=== PATIENT | female | born 1945 | race Asian ===

== ENCOUNTER 2016-09-02 16:55 | Emergency (ER) | payer OTHER ==
--- NOTE | 2016-09-02 18:14 | PDOC ---
History of Present Illness - History of Present Illness Initial Comments: 09/02/16 18:33 The patient is a 70 year old female with a past medical hx of HTN who presents to the ED complaining of intermittent dizziness for 1.5 weeks. The patient states she is visiting from [place] and initially experienced the dizziness on the plane to [place]. She reports she was unable to walk on the plane secondary to the dizziness. She describes the dizziness as a sensation of the room spinning. The patient states she stopped taking Lisinopril one year ago. Her son reports he has been taking her blood pressure and has noticed an increase from her baseline. The patient is asymptomatic while in the ED and denies any recent illnesses or sick contacts. The patient reports headache, lightheadedness, nausea, cough The patient denies chest pain, SOB The patient denies dysuria, frequency The patient denies vomiting, diarrhea Social: No tobacco use reported Allergies: NKDA Surgical: None reported PCP: N/A <Azalea Carpio - Last Filed: 09/02/16 18:41> - General History Source: Patient, Family Exam Limitations: No Limitations <Tonio Mccartney - Last Filed: 09/03/16 21:53> - General Chief Complaint: Lightheaded Stated Complaint: HEADACHE & DIZZY 2-3 DAYS Time Seen by Provider: 09/02/16 18:01 Past History <Azalea Carpio - Last Filed: 09/02/16 18:41> - Past Medical History HTN: Yes (NO MEDS) - Psycho/Social/Smoking Cessation Hx Anxiety: No Suicidal Ideation: No Smoking History: Never smoked Substance Use Type: None <Tonio Mccartney - Last Filed: 09/03/16 21:53> - Past Medical History Allergies/Adverse Reactions: Allergies Allergy/AdvReac Type Severity Reaction Status Date / Time No Known Allergies Allergy Verified 09/02/16 17:57 Home Medications: Ambulatory Orders Meclizine HCl [Antivert -] 25 mg PO TID #21 tablet 09/02/16 Review of Systems - Review of Systems Able to Perform ROS?: Yes Comments:: 09/02/16 18:37 GENERAL/CONSTITUTIONAL: No fever or chills. No weakness. HEAD, EYES, EARS, NOSE AND THROAT: No change in vision. No ear pain or discharge. No sore throat. CARDIOVASCULAR: No chest pain or shortness of breath. RESPIRATORY: +Cough. No wheezing, or hemoptysis. GASTROINTESTINAL: + Nausea. No vomiting, diarrhea or constipation. GENITOURINARY: No dysuria, frequency, or change in urination. MUSCULOSKELETAL: No joint or muscle swelling or pain. No neck or back pain. SKIN: No rash NEUROLOGIC: + Headache, dizziness, lightheadedness. No loss of consciousness, or change in strength/sensation. ENDOCRINE: No increased thirst. No abnormal weight change. HEMATOLOGIC/LYMPHATIC: No anemia, easy bleeding, or history of blood clots. ALLERGIC/IMMUNOLOGIC: No hives or skin allergy. <Azalea Carpio - Last Filed: 09/02/16 18:41> *Physical Exam - Vital Signs Last Vital Signs Temp Pulse Resp BP Pulse Ox 98.1 F 74 15 154/80 98 09/02/16 17:56 09/02/16 17:56 09/02/16 17:56 09/02/16 17:56 09/02/16 17:56 - Physical Exam Comments: 09/02/16 18:40 GENERAL: Awake, alert, and fully oriented, in no acute distress HEAD: No signs of trauma EYES: +No nystagmus. PERRLA, EOMI, sclera anicteric, conjunctiva clear ENT: Auricles normal inspection, hearing grossly normal, nares patent, oropharynx clear without exudates. Moist mucosa NECK: Normal ROM, supple, no lymphadenopathy, JVD, or masses LUNGS: Breath sounds equal, clear to auscultation bilaterally. No wheezes, and no crackles HEART: Regular rate and rhythm, normal S1 and S2, no murmurs, rubs or gallops ABDOMEN: Soft, nontender, normoactive bowel sounds. No guarding, no rebound. No masses EXTREMITIES: Normal range of motion, no edema. No clubbing or cyanosis. No cords, erythema, or tenderness NEUROLOGICAL: Cranial nerves II through XII intact. 5/5 strength in upper and lower extremities. Sensation intact throughout. Finger to nose intact. Rapid alternating hands intact. Normal speech, normal gait SKIN: Warm, Dry, normal turgor, no rashes or lesions noted. <Azalea Carpio - Last Filed: 09/02/16 18:41> Heart Score/ECG Review #1 ECG reviewed & interpreted by me at: 18:20 01/02/17 18:22 NSR 68, no std/sabiha, normal axis, normal intervals, QTC 438 msec <Tonio Mccartney - Last Filed: 09/03/16 21:53> ED Treatment Course - LABORATORY CBC & Chemistry Diagram: 09/02/16 18:25 09/02/16 18:25 - ADDITIONAL ORDERS Additional order review: Laboratory Results 09/02/16 18:15 Urine Color Yellow Urine Appearance Clear Urine pH 5.5 Ur Specific [place] 1.025 Urine Protein Negative Urine Glucose (UA) Negative Urine Ketones Negative Urine Blood Trace H Urine Nitrite Negative Urine Bilirubin Negative Urine Urobilinogen 0.2 e.u/dl Ur Leukocyte Esterase Negative <Azalea Carpio - Last Filed: 09/02/16 18:41> - LABORATORY CBC & Chemistry Diagram: 09/02/16 18:25 09/02/16 18:25 - RADIOLOGY Radiology Studies Ordered: Category Date Time Status HEAD CT WITHOUT CONTRAST [CT] Stat CT Scan 09/02/16 18:03 Ordered <Tonio Mccartney - Last Filed: 09/03/16 21:53> Medical Decision Making - Medical Decision Making 09/02/16 18:08 A portion of this note was documented by scribe services under my direction. I have reviewed the details of the note, within reason, and agree with the documentation with the following case summary and management plan written by me. Patient treated in the ED. Nursing notes are reviewed and incorporated into the medical decision-making. Vital signs reviewed. Peripheral IV access obtained by the nurse, laboratory studies are drawn and sent, reviewed and interpreted by myself. 70-year-old female with past medical history of hypertension, him in from [place], currently visiting her son in [place], presents with 1-1/2 weeks of intermittent dizziness and lightheadedness. The patient had trauma from [place] and since arriving here, she reports intermittent episodes of dizziness and lightheadedness that would last for approximate hour resolve on its own. She describes as a room spinning sensation or occasionally lightheadedness. It is not orthostatic in nature. Denies any associated chest pain or shortness of breath. Has not taken any medications for the symptoms. Denies any recent illnesses, fevers, chills, cough, vomiting, diarrhea, dysuria. Denies ear pains. Because the patient has been having persistent symptoms for 1-1/2 weeks, the patient's son brought the patient to the ER. It may be possible that the patient is likely having peripheral vertigo. However , given the history of hypertension and age, we'll obtain a head CT, labs, EKG, urinalysis. If workup is unremarkable, we'll discharge patient with meclizine and have the patient follow-up with her primary care physician in [place]. The patient is currently asymptomatical at this time. 09/02/16 18:59 Case signed out to [facility] ED attending Dr. Galindo for further management and disposition. <Tonio Mccartney - Last Filed: 09/03/16 21:53> *DC/Admit/Observation/Transfer - Attestations Scribe Attestion: 09/02/16 18:37 Documentation prepared by Azalea Carpio, acting as medical management specialist for Tonio Mccartney MD. <Azalea Carpio - Last Filed: 09/02/16 18:41> <Tonio Mccartney - Last Filed: 09/03/16 21:53> Diagnosis at time of Disposition: Vertigo - Discharge Dispostion Disposition: HOME Condition at time of disposition: Good - Prescriptions Prescriptions: Meclizine HCl [Antivert -] 25 mg PO TID #21 tablet - Patient Instructions Printed Discharge Instructions: DI for Vertigo Additional Instructions: Mrs Robledo- Sorry that this has been bothering you so. It is VERTIGO. Your CT results do show some things that your regular doctor should know but they are not anything to worry about. Take the report to your doctor when you get back home. Antivert will help with these spells but, it may make you sleepy. Return to us if you have any problems. Best- Dr. Remberto Galindo
[2016-09-02 18:25] LABS: PH,URINE 5.5 (4.5-8); URINE APPEARANCE Clear; URINE BILIRUBIN Negative (NEGATIVE); URINE GLUCOSE (UA) Negative (NEGATIVE); URINE KETONE Negative (NEGATIVE); URINE LEUK ESTERASE Negative (NEGATIVE); URINE NITRITE Negative (NEGATIVE); URINE PROTEIN Negative (NEGATIVE); URINE UROBILINOGEN 0.2 E.U/dl (0.2-1.0)
[2016-09-02 18:29] LABS: URINE BLOOD TRACE (NEGATIVE); URINE COLOR YELLOW
[2016-09-02 18:33] VITALS: BP 154/80; PULSE 74; TEMP 98.1; BMI 21.6
[2016-09-02 18:35] LABS: URINE RBC 0-3 /hpf (0-3)
[2016-09-02 18:36] LABS: URINE BACTERIA 2+ /hpf (NEGATIVE); URINE WBC 0-3 (3-5); YEAST FEW
[2016-09-02 18:44] LABS: BASOPHIL 0.4 % (0-2.0); EOSINOPHIL 2.2 % (0-4.5); MCH 31.5 pg (25.7-33.7); MCHC 33.6 g/dl (32.0-36.0); MEAN CELL VOLUME 93.6 fl (80-96); MEAN PLT VOLUME 8.5 fl (7.5-11.1); NEUTROPHILS 67.5 % (42.8-82.8); PLATELET COUNT 186 K/MM3 (134-434); RDW 12.3 % (11.6-15.6); WHITE BLOOD COUNT 6.7 K/mm3 (4.0-10.0)
[2016-09-02 19:01] LABS: CPK(DFH) 51 IU/L (26-140)
[2016-09-02 19:02] LABS: ALBUMIN 4.1 g/dl (3.5-5.0); ALK PHOS 58 U/L (32-92); ANION GAP 5 (8-16); BILIRUBIN,TOTAL 0.4 mg/dl (0.2-1.0); CO2 26 mmol/L (22-28); CREATININE 0.8 mg/dl (0.6-1.3); GLUCOSE,RANDOM 159 mg/dl (74-106); SGOT/AST 31 U/L (10-42); SGPT/ALT 21 U/L (10-40); TOT PROT 7.2 g/dl (6.4-8.3)
--- NOTE | 2016-09-02 19:07 | PDOC ---
*Physical Exam - Vital Signs Last Vital Signs Temp Pulse Resp BP Pulse Ox 98.1 F 74 15 154/80 98 09/02/16 17:56 09/02/16 17:56 09/02/16 17:56 09/02/16 17:56 09/02/16 17:56 <Remberto Galindo - Last Filed: 09/02/16 21:13> - Vital Signs Last Vital Signs Temp Pulse Resp BP Pulse Ox 98.1 F 74 15 154/80 98 09/02/16 17:56 09/02/16 17:56 09/02/16 17:56 09/02/16 17:56 09/02/16 17:56 - Physical Exam Comments: 09/02/16 19:14 The patient is a 70 year old female with a past medical hx of HTN who presents to the ED complaining of intermittent dizziness for 1.5 weeks. Patient care transitioned from Dr. Mccartney to Dr. Galindo at 19:00. Pending CT Head, labs. <Azalea Carpio - Last Filed: 09/02/16 21:16> ED Treatment Course - LABORATORY CBC & Chemistry Diagram: 09/02/16 18:25 09/02/16 18:25 - ADDITIONAL ORDERS Additional order review: Laboratory Results 09/02/16 18:15 Urine Color Yellow Urine Appearance Clear Urine pH 5.5 Ur Specific [place] 1.025 Urine Protein Negative Urine Glucose (UA) Negative Urine Ketones Negative Urine Blood Trace H Urine Nitrite Negative Urine Bilirubin Negative Urine Urobilinogen 0.2 e.u/dl Ur Leukocyte Esterase Negative Urine RBC 0-3 Urine WBC 0-3 Ur Epithelial Cells 2+ Amorphous Urates Few Urine Bacteria 2+ Urine Yeast Few 09/02/16 18:25 RBC 4.16 MCV 93.6 MCHC 33.6 RDW 12.3 MPV 8.5 Neutrophils % 67.5 Lymphocytes % 25.2 Monocytes % 4.7 Eosinophils % 2.2 Basophils % 0.4 <Remberto Galindo - Last Filed: 09/02/16 21:13> - LABORATORY CBC & Chemistry Diagram: 09/02/16 18:25 09/02/16 18:25 - ADDITIONAL ORDERS Additional order review: Laboratory Results 09/02/16 18:15 Urine Color Yellow Urine Appearance Clear Urine pH 5.5 Ur Specific [place] 1.025 Urine Protein Negative Urine Glucose (UA) Negative Urine Ketones Negative Urine Blood Trace H Urine Nitrite Negative Urine Bilirubin Negative Urine Urobilinogen 0.2 e.u/dl Ur Leukocyte Esterase Negative Urine RBC 0-3 Urine WBC 0-3 Ur Epithelial Cells 2+ Amorphous Urates Few Urine Bacteria 2+ Urine Yeast Few 09/02/16 18:25 RBC 4.16 MCV 93.6 MCHC 33.6 RDW 12.3 MPV 8.5 Neutrophils % 67.5 Lymphocytes % 25.2 Monocytes % 4.7 Eosinophils % 2.2 Basophils % 0.4 - RADIOLOGY Radiograph Interpretation: 09/02/16 21:16 CT head without contrast Impression: There is mild/moderate diffuse cortical atrophy present. There is no evidence of acute infarction. There is no hemorrhage. There are nonspecific calcifications in the basal ganglia bilaterally. There is no skull fracture seen. The mastoid regions are non-pneumatized. There is partial opacification of the middle ear cavities bilaterally. THIS DOCUMENT HAS BEEN ELECTRONICALLY SIGNED Gerry Jj MD 09/02/2016 20:46 EST <Azalea Carpio - Last Filed: 09/02/16 21:16> *DC/Admit/Observation/Transfer - Discharge Dispostion Admit: No - Attestations Physician Attestion: 09/02/16 19:06 I, Dr. Remberto Galindo, attest that this document has been prepared under my direction and personally reviewed by me in its entirety. I further attest, that it accurately reflects all work, treatment, procedures and medical decision -making performed by me. <Remberto Galindo - Last Filed: 09/02/16 21:13> <Azalea Carpio - Last Filed: 09/02/16 21:16> Diagnosis at time of Disposition: Vertigo - Discharge Dispostion Disposition: HOME Condition at time of disposition: Good - Prescriptions Prescriptions: Meclizine HCl [Antivert -] 25 mg PO TID #21 tablet - Patient Instructions Printed Discharge Instructions: DI for Vertigo Additional Instructions: Mrs Robledo- Sorry that this has been bothering you so. It is VERTIGO. Your CT results do show some things that your regular doctor should know but they are not anything to worry about. Take the report to your doctor when you get back home. Antivert will help with these spells but, it may make you sleepy. Return to us if you have any problems. Amb[place]- Dr. Remberto Galindo
[2016-09-02 19:41] LABS: TROPONIN I (DFP) < 0.03 ng/ml (0.03-0.50)
== END 2016-09-02 21:29 | disposition home or self-care (01) ==
LOC: FER 16:55
DX: R55 Syncope and collapse (principal); I10 Essential (primary) hypertension
CPT/HCPCS: 36415; 70450-TC; 80053; 81003; 81015; 82550; 84484; 85025; 87086; 99283-25

== ENCOUNTER 2016-09-13 08:54 | Emergency (ER) | payer OTHER ==
[2016-09-13 09:01] VITALS: BMI 23.3
--- NOTE | 2016-09-13 10:00 | PDOC ---
History of Present Illness <Robin Cheng - Last Filed: 09/13/16 10:00> - General History Source: Patient Exam Limitations: No Limitations - History of Present Illness Initial Comments: 09/13/16 11:29 The patient is a 70-year-old female, with a significant past medical history of hypertension and cardiomegaly, who presents to the emergency department with chest pain and headache. The patient reports that the chest pain started this morning, but was gone upon arrival to the ED. She describes the chest pain as a pressure in her chest, and is mild in nature. She reports she had a headache last night, but the headache is gone upon interview. She reports the headache was striking in nature. She took 2 Tylenol for the headache with moderate relief. She reports associated dizziness. As per son, her blood pressure was measured at home and he noticed an increase from her baseline. She states she stopped taking Lisinopril one year ago. The patient was seen at [place] last week for vertigo. The patient denies shortness of breath and palpitations. The patient denies fever, chills, nausea, vomit, diarrhea and constipation. The patient denies any urinary complaints. Allergies: NKDA Past surgical history: None reported Social history: Denies smoking, ETOH, or recreational drug use. <Madyson Barron - Last Filed: 09/13/16 13:56> <Mackenzie Tomlinson - Last Filed: 09/13/16 20:33> - General Chief Complaint: Blood Pressure Problem Stated Complaint: DIZZINESS, CHEST PAIN Past History - Past Medical History HTN: Yes (NO MEDS) - Psycho/Social/Smoking Cessation Hx Anxiety: No Suicidal Ideation: No Smoking History: Never smoked Information on smoking cessation initiated: No Hx Alcohol Use: No Drug/Substance Use Hx: No Substance Use Type: None <Robin Cheng - Last Filed: 09/13/16 10:00> <Madyson Barron - Last Filed: 09/13/16 13:56> <Mackenzie Tomlinson - Last Filed: 09/13/16 20:33> - Past Medical History Allergies/Adverse Reactions: Allergies Allergy/AdvReac Type Severity Reaction Status Date / Time No Known Allergies Allergy Verified 09/13/16 08:57 Home Medications: Ambulatory Orders Meclizine HCl [Antivert -] 25 mg PO TID #21 tablet 09/02/16 Acetaminophen [Pain Relief] 650 mg PO Q8H PRN 09/13/16 Hydrochlorothiazide [Hctz -] 12.5 mg PO DAILY #30 cap 09/13/16 Review of Systems - Review of Systems Able to Perform ROS?: Yes Comments:: 09/13/16 11:30 CONSTITUTIONAL: Absent: fever, chills, diaphoresis, generalized weakness, malaise, loss of appetite HEENT: Absent: rhinorrhea, nasal congestion, throat pain, throat swelling, difficulty swallowing, mouth swelling, ear pain, eye pain, visual changes CARDIOVASCULAR: Present: (+) chest pain Absent: syncope, palpitations, irregular heart rate, peripheral edema RESPIRATORY: Absent: cough, shortness of breath, dyspnea with exertion, orthopnea, wheezing, stridor, hemoptysis GASTROINTESTINAL: Absent: abdominal pain, abdominal distension, nausea, vomiting, diarrhea, constipation, melena, hematochezia GENITOURINARY: Absent: dysuria, frequency, urgency, hesitancy, hematuria, flank pain, genital pain MUSCULOSKELETAL: Absent: myalgia, arthralgia, joint swelling SKIN: Absent: rash, itching, pallor HEMATOLOGIC/IMMUNOLOGIC: Absent: easy bleeding, easy bruising, lymphadenopathy, frequent infections ENDOCRINE: Absent: unexplained weight gain, unexplained weight loss, heat intolerance, cold intolerance NEUROLOGIC: Present: (+) headache, (+)dizziness Absent: focal weakness or paresthesias, unsteady gait, seizure, mental status changes, bladder or bowel incontinence PSYCHIATRIC: Absent: anxiety, depression, suicidal or homicidal ideation, hallucinations. <Madyson Barron - Last Filed: 09/13/16 13:56> *Physical Exam - Vital Signs Last Vital Signs Temp Pulse Resp BP Pulse Ox 98.2 F 70 18 138/82 100 09/13/16 08:57 09/13/16 08:57 09/13/16 08:57 09/13/16 08:57 09/13/16 08:57 <Robin Cheng - Last Filed: 09/13/16 10:00> - Vital Signs Last Vital Signs Temp Pulse Resp BP Pulse Ox 98.2 F 70 18 138/82 100 09/13/16 08:57 09/13/16 08:57 09/13/16 08:57 09/13/16 08:57 09/13/16 08:57 - Physical Exam Comments: 09/13/16 11:30 GENERAL: Well developed, well nourished. Awake and alert. In no acute distress. HEENT: Normocephalic, atraumatic. PERRLA, EOMI. No conjunctival pallor. Sclera are non- icteric. Moist mucous membranes. Oropharynx is clear. NECK: Supple. Full ROM. No JVD. Carotid pulses 2+ and symmetric, without bruits. No thyromegaly. No lymphadenopathy. CARDIOVASCULAR: Regular rate and rhythm. No murmurs, rubs, or gallops. Distal pulses are 2+ and symmetric. PULMONARY: No evidence of respiratory distress. Lungs clear to auscultation bilaterally. No wheezing, rales or rhonchi. ABDOMINAL: Soft. Non-tender. Non-distended. No rebound or guarding. No organomegaly. Normoactive bowel sounds. MUSCULOSKELETAL Normal range of motion at all joints. No bony deformities or tenderness. No CVA tenderness. EXTREMITIES: No cyanosis. No clubbing. No edema. No calf tenderness. SKIN: Warm and dry. Normal capillary refill. No rashes. No jaundice. NEUROLOGICAL: Alert, awake, appropriate. Cranial nerves 2-12 intact. No deficits to light touch and temperature in face, upper extremities and lower extremities. No motor deficits in the in face, upper extremities and lower extremities. Normoreflexic in the upper and lower extremities. Normal speech. Toes are downgoing bilaterally. Gait is normal without ataxia. PSYCHIATRIC: Cooperative. Good eye contact. Appropriate mood and affect. <Madyson Barron - Last Filed: 09/13/16 13:56> - Vital Signs Last Vital Signs Temp Pulse Resp BP Pulse Ox 98 F 69 16 133/71 100 09/13/16 18:41 09/13/16 18:41 09/13/16 18:41 09/13/16 18:41 09/13/16 18:41 <Mackenzie Tomlinson - Last Filed: 09/13/16 20:33> ED Treatment Course - LABORATORY CBC & Chemistry Diagram: 09/13/16 10:10 09/13/16 10:10 - ADDITIONAL ORDERS Additional order review: Laboratory Results 09/13/16 09/13/16 10:10 10:10 INR Cancelled PTT (Actin FS) Cancelled D-Dimer Cancelled Sodium 138 Potassium 5.9 H Chloride 107 Carbon Dioxide 26 Anion Gap 5 L BUN 20 H Creatinine 0.9 Creat Clearance w eGFR > 60 Random Glucose 117 H Calcium 8.6 Magnesium 2.0 Total Bilirubin 0.6 AST 60 H ALT 29 Alkaline Phosphatase 60 Creatine Kinase 188 Troponin I < 0.02 B-Natriuretic Peptide 31.28 Total Protein 7.3 Albumin 3.5 09/13/16 10:10 RBC 3.72 MCV 95.4 MCHC 34.4 RDW 12.8 MPV 8.7 Neutrophils % 69.4 Lymphocytes % 22.6 Monocytes % 5.4 Eosinophils % 2.0 Basophils % 0.6 - RADIOLOGY Radiograph Interpretation: 09/13/16 13:56 RAD/CHEST PA & LAT Reviewed by: Dr. Robin Cheng Interpreted by: Dr. Matheus Johnson IMPRESSION: No evidence of active pulmonary disease. - Medications Given in the ED: ED Medications Discontinued Medications Generic Name Dose Route Start Last Admin Trade Name Freq PRN Reason Stop Dose Admin Aspirin 325 mg 09/13/16 10:10 09/13/16 10:40 Ecotrin - PO 09/13/16 10:11 325 mg ONCE ONE Administration <AndersonMadyson - Last Filed: 09/13/16 13:56> - LABORATORY CBC & Chemistry Diagram: 09/13/16 10:10 09/13/16 10:10 - ADDITIONAL ORDERS Additional order review: Laboratory Results 09/13/16 09/13/16 09/13/16 12:05 12:00 10:10 INR 1.04 PTT (Actin FS) 30.7 D-Dimer 240 H Sodium 138 Potassium 5.9 H Chloride 107 Carbon Dioxide 26 Anion Gap 5 L BUN 20 H Creatinine 0.9 Creat Clearance w eGFR > 60 Random Glucose 117 H Calcium 8.6 Magnesium 2.0 Total Bilirubin 0.6 AST 60 H ALT 29 Alkaline Phosphatase 60 Creatine Kinase 188 CK-MB (CK-2) < 1.000 Troponin I < 0.02 B-Natriuretic Peptide 31.28 Total Protein 7.3 Albumin 3.5 09/13/16 10:10 INR Cancelled PTT (Actin FS) Cancelled D-Dimer Cancelled Sodium Potassium Chloride Carbon Dioxide Anion Gap BUN Creatinine Creat Clearance w eGFR Random Glucose Calcium Magnesium Total Bilirubin AST ALT Alkaline Phosphatase Creatine Kinase CK-MB (CK-2) Troponin I B-Natriuretic Peptide Total Protein Albumin 09/13/16 10:10 RBC 3.72 MCV 95.4 MCHC 34.4 RDW 12.8 MPV 8.7 Neutrophils % 69.4 Lymphocytes % 22.6 Monocytes % 5.4 Eosinophils % 2.0 Basophils % 0.6 - Medications Given in the ED: ED Medications Discontinued Medications Generic Name Dose Route Start Last Admin Trade Name Sayda PRN Reason Stop Dose Admin Aspirin 325 mg 09/13/16 10:10 09/13/16 10:40 Ecotrin - PO 09/13/16 10:11 325 mg ONCE ONE Administration Sodium Polystyrene Sulfonate 30 gm 09/13/16 11:43 09/13/16 13:11 Kayexalate - PO 09/13/16 11:44 30 gm ONCE ONE Administration <Mackenzie Tomlinson - Last Filed: 09/13/16 20:33> Medical Decision Making - Medical Decision Making 09/13/16 20:09 Patient Name: Ruby Robledo PRELIMINARY REPORT FROM IMAGING GUIDANCE COUNSELOR EXAM: CTA chest with contrast DATE: 2016-09-13 18:34:03.0 IMAGES: [id number] HISTORY: Pain, dyspnea, possible pulmonary embolism REPORT: No pulmonary embolism seen. No aortic dissection seen. Lungs show no focal consolidation or effusion or pneumothorax. There is probably some nodular scarring at the left apex. Comparison with prior studies would be helpful. THIS DOCUMENT HAS BEEN ELECTRONICALLY SIGNED 09/13/16 20:29 Pt and her son tell me that her pain this AM in her chest lasted under 1 minute. She states that she has no CP at this time. Son is concerned that his mom traveled from the [facility] to [place] and came to [place]; she has never had HTN in the past. She has no docs in this country and no antiHTN meds. I will start her on HCTZ 25mg. Son wants the lowest dose, so I will prescibe 12.5mg HCTZ. <Mackenzie Tomlinson - Last Filed: 09/13/16 20:33> *DC/Admit/Observation/Transfer <Robin Cheng - Last Filed: 09/13/16 10:00> - Attestations Scribe Attestion: 09/13/16 11:31 Documentation prepared by Madyson Barron, acting as medical housekeeper for Robin Cheng MD. <Madyson Barron - Last Filed: 09/13/16 13:56> - Discharge Dispostion Admit: No <Mackenzie Tomlinson - Last Filed: 09/13/16 20:33> Diagnosis at time of Disposition: Head ache, Atypical chest pain - Discharge Dispostion Disposition: HOME Condition at time of disposition: Stable - Prescriptions Prescriptions: Hydrochlorothiazide [Hctz -] 12.5 mg PO DAILY #30 cap - Patient Instructions Printed Discharge Instructions: How to Monitor Your Blood Pressure at Home
[2016-09-13] MEDS ORDERED: ASPIRIN 325 MG ENTERIC COATED TABLET (FP) PO ONE (10:10)
[2016-09-13] MEDS ORDERED: ASPIRIN 325 MG ENTERIC COATED TABLET (FP) ONE (10:28)
[2016-09-13 10:48] LABS: BASOPHIL 0.6 % (0-2.0); MCH 32.8 pg (25.7-33.7); MCHC 34.4 g/dl (32.0-36.0); MEAN CELL VOLUME 95.4 fl (80-96); MEAN PLT VOLUME 8.7 fl (7.5-11.1); NEUTROPHILS 69.4 % (42.8-82.8); PLATELET COUNT 191 K/MM3 (134-434); RDW 12.8 % (11.6-15.6); WHITE BLOOD COUNT 5.8 K/mm3 (4.0-10.0)
[2016-09-13 11:10] LABS: ALBUMIN 3.5 g/dl (3.4-5.0); ANION GAP 5 (8-16); BILIRUBIN,TOTAL 0.6 mg/dL (0.2-1.0); CALCIUM 8.6 mg/dL (8.5-10.1); CO2 26 mmol/L (21-32); CREATININE 0.9 mg/dL (0.55-1.02); GLUCOSE,RANDOM 117 mg/dL (74-106); SGPT/ALT 29 U/L (12-78); TOT PROT 7.3 g/dl (6.4-8.2)
[2016-09-13 11:13] LABS: ALK PHOS 60 U/L (45-117); TROPONIN I < 0.02 ng/ml (0.00-0.05)
[2016-09-13 11:15] LABS: SGOT/AST 60 U/L (15-37)
[2016-09-13] MEDS ORDERED: SODIUM POLYSTYRENE SULFONATE 15 GM/60 ML BOTTLE PO ONE (11:43)
[2016-09-13 12:41] LABS: INR 1.04 (0.82-1.09); PROTHROMBIN TIME (PATIENT) 11.5 SEC (9.98-11.88)
[2016-09-13 12:44] LABS: ACTIVATED PTT 30.7 SECONDS (26.9-34.4)
[2016-09-13] MEDS ORDERED: LACTULOSE 20 GM/30 ML UDC (FOR ORAL USE ONLY) ONE (13:11)
[2016-09-13 18:42] VITALS: BP 133/71; PULSE 69; TEMP 98
--- NOTE | 2016-09-18 11:55 | EKG ---
Test Reason : Blood Pressure : / mmHG Vent. Rate : 072 BPM Atrial Rate : 072 BPM P-R Int : 138 ms QRS Dur : 082 ms QT Int : 396 ms P-R-T Axes : 054 -05 015 degrees QTc Int : 433 ms NORMAL SINUS RHYTHM NORMAL ECG NO PREVIOUS ECGS AVAILABLE Confirmed by DIONICIO GARCIA, SAMI ([id number]) on 09/18/2016 11:54:55 AM Referred By: Confirmed By:SAMI GREENBERG MD
== END 2016-09-13 20:49 | disposition home or self-care (01) ==
LOC: JER 08:54
DX: R07.89 Other chest pain (principal); R51 Headache; I10 Essential (primary) hypertension; I51.7 Cardiomegaly
CPT/HCPCS: 36415; 71020-TC; 71275-TC; 80053; 82550; 82553; 83735; 83880; 84484; 85025; 85379; 85610; 85730; 93005; 93010; 99283-25